=== PATIENT | male | born 1950 | race Caucasian/White ===

== ENCOUNTER 2021-05-14 12:25 | Outpatient (REF) | payer MEDICARE, MEDICAID, SELFPAY ==
--- NOTE | 2021-05-14 13:29 | MHC.AU.ANO ---
Adult Audiological Evaluation Date of Visit: 05/14/21 Reason for Appointment: Patient reports that other people in his life have started to express concern about his hearing. He feels he hears well one-on-one, but has difficulty in noisier settings. He also reports that his short-term memory has been greatly impacted by a stroke. Does patient feel they have a hearing loss?: Yes If Yes, Which Ear?: Both Ears Has hearing been tested previously?: No Hearing Handicap Inventory: HHIE SCORE: 16 Based on HHIE score, patient has: Mild to moderate perceived hearing handicap Ear History: Ear Deformity: None Reported Recent Ear Drainage: None Reported Recent Ear Pain: None Reported Recent Ear Infections: None Reported History of Ear Wax Buildup: Both Ears Previous Ear Surgery: None Reported Bothersome Tinnitus/Ringing/Noises in Ears: None Reported Ear used on the phone: Left Ear Blocked/Full Sensation in Ear(s): None Reported History of occupational noise exposure?: No History: No Medical History: Medical History: Patient reports history of stroke. He states that he has made significant progress in his recovery, but still struggles with short-term memory. He currently lives in a senior living setting. Otoscopy: Right Ear: Completely occluded with cerumen Left Ear: Completely occluded with cerumen Interpretation of Results: Due to the cerumen impactions, we were unable to perform the audiological evaluation today, as it would have impacted the results. Given patient's medical history, cerumen removal could not be performed in office today. It is recommended that a physician perform cerumen removal so that any potential complications can receive immediate medical attention. Recommendations: Follow-up with with PCP or an Ear, Nose, and Throat physician for cerumen removal. After complete cerumen removal, audiological evaluation can be rescheduled. Diagnosis: Primary Diagnosis: H61.23 Impacted Cerumen, Bilateral Signature: Provider: Ally Kwong, [facility]
== END 2021-05-14 12:26 | disposition home or self-care (01) ==
LOC: HO.SH 12:25
PROVIDERS: Visit Provider Internal Medicine
DX: Z13.89 Encounter for screening for other disorder (principal)

== ENCOUNTER 2021-08-27 12:22 | Outpatient (REF) | payer MEDICARE, MEDICAID, SELFPAY ==
--- NOTE | 2021-08-27 16:06 | MHC.AU.ANR ---
Adult Audiological Evaluation Date of Visit: 08/27/21 Reason for Appointment: Mr. Aragon was see today for an audiological evaluation. He was previously seen at our clinic on 05/14/2021, at which time he presented with impacted cerumen bilaterally that could not be removed. Since that time he has seen ENT for cerumen removal. Mr. Aragon notes that he feels he hears well most of the time, but his feels he doesn't hear well. Mr. Aragon suffered a stroke in 2019 and has been having difficulty with short term memory as a result. 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 He states that he has made significant progress in his recovery, but still struggles with short-term memory. He currently lives in a [facility] setting. Allergies: NKA Medication List: Aspirin, Isosorbide Mononitrate ER, Amlodipine besylate, methylphenidate, atorvastatin calcium, omeprazole, colace, hydrochlorothiazide, losartan potassium, acetaminophen Otoscopy: Right Ear: Unremarkable Left Ear: Unremarkable Tympanometry: Tympanometry performed due to: To assess integrity of the middle ear system Right Ear: Normal Middle Ear System (Type A) Left Ear: Normal Middle Ear System (Type A) Hearing Evaluation: Transducer(s) Used: Insert Earphones, Bone Conduction Method: Conventional Audiometry Stimuli Used: Pure Tones Right Ear: Description of Hearing: Normal hearing from 250-500 Hz, sloping to a mild to moderately-severe sensorineural hearing loss from 750-8000 Hz. Left Ear: Description of Hearing: Mild sloping to severe sensorineural hearing loss from 250-8000 Hz. Hearing in the left ear is 10-30 dBHL worse than the right ear from 500-2000 Hz. Speech Recognition Threshold (SRT): Method Used: Monitored Live Voice Stimuli Used: Spondee Words Right Ear: 30 dBHL Left Ear: 40 dBHL Word Discrimination: Method: Recorded Lists Word Lists Used: NU-6 Right Ear: 84% at 70 dBHL Left Ear: 56% at 80 dBHL, 36% at 85 dBHL Interpretation of Results: Testing today indicates an asymmetrical mild to moderately-severe/severe sensorineural hearing loss, with the left ear hearing worse than the right. Left ear speech discrimination scores are also significantly worse than the right ear, and suggest possible rollover as the score worsened when the volume was increased. Recommendations: Audiological re-evaluation in one year. Based on type and degree of hearing loss, trial with binaural amplification is recommended. Mr. Aragon notes that he doesn't feel ready to pursue hearing aids at this time. Referral to Ear, Nose, and Throat is recommended due to asymmetric sensorineural hearing loss. Diagnosis: Primary Diagnosis: H90.3 Bilateral Sensorineural Hearing Loss Services Performed: Services Performed: Comprehensive Audiological Evaluation (CPT 08163) Tympanometry (CPT 52008) Signature: Provider: Ally Llanos, CCC-A
--- NOTE | 2021-08-27 16:25 | MHC.AU.ANR ---
Adult Audiological Evaluation Date of Visit: 08/27/21 Reason for Appointment: Mr. Aragon was see today for an audiological evaluation. He was previously seen at our clinic on 05/14/2021, at which time he presented with impacted cerumen bilaterally that could not be removed. Since that time he has seen ENT for cerumen removal. Mr. Aragon notes that he feels he hears well most of the time, but his feels he doesn't hear well. Mr. Aragon suffered a stroke in 2019 and has been having difficulty with short term memory as a result. 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 He states that he has made significant progress in his recovery, but still struggles with short-term memory. He currently lives in a retirement setting. Allergies: NKA Medication List: Aspirin, Isosorbide Mononitrate ER, Amlodipine besylate, methylphenidate, atorvastatin calcium, omeprazole, colace, hydrochlorothiazide, losartan potassium, acetaminophen Otoscopy: Right Ear: Unremarkable Left Ear: Unremarkable Tympanometry: Tympanometry performed due to: To assess integrity of the middle ear system Right Ear: Normal Middle Ear System (Type A) Left Ear: Normal Middle Ear System (Type A) Hearing Evaluation: Transducer(s) Used: Insert Earphones, Bone Conduction Method: Conventional Audiometry Stimuli Used: Pure Tones Right Ear: Description of Hearing: Normal hearing from 250-500 Hz, sloping to a mild to moderately-severe sensorineural hearing loss from 750-8000 Hz. Left Ear: Description of Hearing: Mild sloping to severe sensorineural hearing loss from 250-8000 Hz. Hearing in the left ear is 10-30 dBHL worse than the right ear from 500-2000 Hz. Speech Recognition Threshold (SRT): Method Used: Monitored Live Voice Stimuli Used: Spondee Words Right Ear: 30 dBHL Left Ear: 40 dBHL Word Discrimination: Method: Recorded Lists Word Lists Used: NU-6 Right Ear: 84% at 70 dBHL Left Ear: 56% at 80 dBHL, 36% at 85 dBHL Interpretation of Results: Testing today indicates an asymmetrical mild to moderately-severe/severe sensorineural hearing loss, with the left ear hearing worse than the right. Left ear speech discrimination scores are also significantly worse than the right ear, and suggest possible rollover as the score worsened when the volume was increased. Recommendations: Audiological re-evaluation in one year. Trial with amplification is recommended. Referral to Ear, Nose, and Throat is recommended. Diagnosis: Primary Diagnosis: H90.3 Bilateral Sensorineural Hearing Loss Services Performed: Services Performed: Comprehensive Audiological Evaluation (CPT 84968) Tympanometry (CPT 40845) Signature: Provider: Ally Llanos, CCC-A
== END 2021-08-27 12:23 | disposition home or self-care (01) ==
LOC: HO.SH 12:22
PROVIDERS: Visit Provider Internal Medicine
DX: Z01.118 Encounter for examination of ears and hearing with other abnormal findings (principal); H90.3 Sensorineural hearing loss, bilateral
CPT/HCPCS: 92557; 92567

== ENCOUNTER 2022-02-01 12:29 | Outpatient (REF) | payer MEDICARE, MEDICAID, SELFPAY ==
--- NOTE | 2022-02-03 16:32 | MHC.AU.ANO ---
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 When last tested at this office on 08/27/2021, a significant asymmetric hearing loss was diagnosed and medical consultation with an Small Appliance Assembly Supervisor (ENT) was recommended; however, the referral for this appointment was never made. Since the last hearing test, Juan A has been diagnosed with Colon Cancer, had surgery performed in September 2021, and is now have Chemotherapy treatments. Has hearing been tested previously?: Yes Previous Hearing Test Results: 08/27/2021 [facility] Right Ear - Normal hearing thresholds at 250-500 Hz, sloping to a moderately-severe sensorineural hearing loss with 84% speech understanding at 70 dB HL Left Ear - Mild sloping to severe sensorineural hearing loss with 56% speech discrimination ability at 80 dB HL and 36% at 85 dB HL. 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 He stated he has made significant progress in his recovery, but still struggles with short-term memory. He currently lives in a longterm setting. Allergies: NKA Medication List: Remeron, FolEox Chemotherapy. Aspirin EC, Isosorbide Mononitrate ER, Amlodipine, Methylphenidate, Atorvastatin, Omeprazole, Colace, Losartan, Tylenol Otoscopy: Right Ear: Unremarkable Left Ear: Unremarkable Tympanometry: Tympanometry performed due to: To assess integrity of the middle ear system Right Ear: Normal Middle Ear System (Type A) Left Ear: Normal Middle Ear System (Type A) Otoacoustic Emissions Did Not Test Hearing Evaluation: Transducer(s) Used: Insert Earphones Bone Conduction Method: Conventional Audiometry Stimuli Used: Pure Tones Right Ear: Description of Hearing: Borderline normal/mild hearing loss, dropping to a severe sensorineural hearing loss 6861-5656 Hz. Left Ear: Description of Hearing: Mild dropping to severe sensorineural hearing loss 2258-6599 Hz. The left ear thresholds are 10-25 dB poorer than the right at 250-2000 Hz. Speech Recognition Threshold (SRT): Method Used: Monitored Live Voice Stimuli Used: Spondee Words Right Ear: 30 dB HL Left Ear: 45 dB HL Word Discrimination: Method: Recorded Lists Word Lists Used: NU-6 Right Ear: 92% at 70 dB HL Left Ear: 60% at 85 dB HL Binaural: 100% at 75 dB HL Comparison: Compared to the most recent evaluation: Thesholds have decreased in the right ear Recommendations: - Referral to Ear, Nose, and Throat is recommended. - Trial with binaural amplification is recommended. - Medical clearance from ENT is required before fitting. - When medical clearance for hearing aid(s) is received, Juan A is advised to schedule a Hearing Aid Evaluation appointment at this office. - Audiological re-evaluation in one year. Will send a reminder card Diagnosis: Primary Diagnosis: H90.3 Bilateral Sensorineural Hearing Loss Services Performed: Comprehensive Audiological Evaluation (CPT 11906) Tympanometry (CPT 77247) Signature: Provider: Ally Quezada, CCC-A
== END 2022-02-01 12:30 | disposition home or self-care (01) ==
LOC: HO.HAP 12:29
PROVIDERS: Visit Provider Internal Medicine
DX: Z46.1 Encounter for fitting and adjustment of hearing aid (principal); H90.3 Sensorineural hearing loss, bilateral
CPT/HCPCS: 92557; 92567

== ENCOUNTER 2022-06-20 16:05 | Outpatient (REF) | payer MEDICARE, MEDICAID, SELFPAY ==
--- NOTE | 2022-06-21 08:17 | MHC.AU.HAS ---
Hearing Aid Evaluation Date of Visit: 06/20/22 Historical Information: Description of Hearing: Asymmetric mild dropping to severe sensorineural hearing loss with the left ear being poorer than the right. Current personal amplification information, if applicable: NONE Summary: Patient was referred to ENT after last testing at this office on 02/01/2022 and medically cleared for binaural hearing aids. Patient does not want to use hearing aids. Discussed if he felt he would not wear aids, he should not proceed with fitting aids. Counseled extensively about his hearing loss, decreased speech understanding for the left ear, realistic expectations for amplification, and need to use aids every day, all day. Also discussed the difficulties he is experiencing from the effects of his stroke. He reports his family feels he needs the hearing aids and that he should try the hearing aids. Hearing Aid Prescription: Based on the individual?s shared listening needs, communication environments, dexterity, desire for connectivity, and personal preferences, the following prescription for amplification has been made: Right ear: Night Court Magistrate: PhonDigiMeld Audeo P 70-R Battery Size: Rechargeable Color: Silver Foster Traffic Control Officer: #2 M Type of Dome: Open Dome Left ear:Left ear prescription to be same as Right Hearing Aid above: Night Court Magistrate: Phonak Audeo P 70-R Battery Size: Rechargeable Color: SIlver Foster Traffic Control Officer: #2 M Type of Dome: Vented Dome Plan of Care: Patient wishes to purchase hearing aids as prescribed Hearing Instrument Fitting to be scheduled when materials arrive Primary Diagnosis: H90.3 Bilateral Sensorineural Hearing Loss Signature:Provider: Vargas Quezada, [facility]
== END 2022-06-20 16:06 | disposition home or self-care (01) ==
LOC: HO.HAP 16:05
PROVIDERS: Visit Provider Otolaryngology
DX: Z46.1 Encounter for fitting and adjustment of hearing aid (principal); H90.3 Sensorineural hearing loss, bilateral
CPT/HCPCS: 92591

== ENCOUNTER 2023-10-26 13:44 | Outpatient (REF) | payer MEDICARE, MEDICAID, SELFPAY ==
--- NOTE | 2023-10-26 15:20 | MHC.AU.HA1 ---
Hearing Aid Evaluation Date of Visit: 10/26/23 Historical Information: Description of Hearing: Mild gradually sloping to severe sensorineural hearing loss, bilateral. Asymmetry noted worse left. Summary: Accompanied by Shola GONZALES. Juan A reports that he is ready to try hearing aids at this time. He resisted in the past as he was worried about the size of hearing aids due to remembering his great aunt's large hearing aid 50 years ago. He reports that his is encouraging him to get hearing aids and that he would like to hear his grandchildren better. We looked at a modern ERENDIRA style hearing aid and Juan A is amenable to this style. Counseled on adjustment to amplification and importance of consistent wear. They selected a rechargeable hearing aid. They report that Juan A does not use his Android phone for much besides texting at this time. Will order Phonak HAs incase he wants to connect with his phone at some point in the future. Hearing Aid Prescription: Based on the individual?s shared listening needs, communication environments, dexterity, desire for connectivity, and personal preferences, the following prescription for amplification has been made: Right ear: Make, Model, Color: Phonak Audeo L 70-R Silver Foster Battery Size: Rechargeable Lighter Captain/Slim Tube: #2 M Type of Earmold/Dome/CShell/SlimTip: sm vented Left ear: Left ear prescription to be same as Right Hearing Aid above: Make, Model, Color: Phonak Audeo L 70-R Silver Foster Battery Size: Rechargeable Lighter Captain/Slim Tube: #2 M Type of Earmold/Dome/CShell/SlimTip: sm vented Plan of Care: Patient wishes to purchase hearing aids as prescribed Action Taken/Action Needed: Medical Clearance to be requested from PCP/ENT Hearing Instrument Fitting to be scheduled when materials arrive Primary Diagnosis: H90.3 Bilateral Sensorineural Hearing Loss Signature: Provider: Vargas Norton, [facility]
== END 2023-10-26 13:45 | disposition home or self-care (01) ==
LOC: HO.SH 13:44
PROVIDERS: PCP Internal Medicine; Visit Provider Internal Medicine
DX: H90.3 Sensorineural hearing loss, bilateral (principal)
CPT/HCPCS: 92552; 92556; 92591

== ENCOUNTER 2024-01-10 14:21 | Outpatient (REF) | payer MEDICARE, MEDICAID, SELFPAY ==
--- NOTE | 2024-01-10 16:01 | MHC.AU.HA2 ---
Hearing Instrument Fitting- Adult- Binaural Date of Visit: 01/10/24 Hearing Instruments Dispensed: Right Ear: Make, Model, Color, Serial Number: Phonak Razeo L 70-R Bebeto Foster [id number] [employer] Maker Repair Warranty: 01/24/2027 [employer] Maker Loss and Damage Warranty: 01/24/2027 [employer] Service Plan: 01/09/2025 Battery Size: Rechargeable Spent Grain Dryer/Slim Tube: #2 M Earmold/Dome/CShell/SlimTip: sm vented Type of Wax Guard: Cerustop Left Ear: Make, Model, Color, Serial Number: Phonak Audeo L 70-R Bebeto Foster [id number] [employer] Maker Repair Warranty: 01/23/2027 [employer] Maker Loss and Damage Warranty: 01/23/2027 [employer] Service Plan: 01/09/2025 Battery Size: Rechargeable Spent Grain Dryer/Slim Tube: #2 M Earmold/Dome/CShell/SlimTip: sm vented Type of Wax Guard: Cerustop Accessories/Assistive Technology: Phonak Rabbit Breeder Ease S#[id number] Summary of Fitting: Here for fitting. Accompanied by his and his INORGANIC CHEMIST. Fit with and oriented to binaural Phonak Audeo L70 R HAs. Verified to DSL 5 Adult targets. Ran feedback management. Set to 85% gain with automatic gradual increase. Counseled on adjustment to amplification. VC disabled. Good subjective comfort and benefit reported. Practiced insertion and removal. Demonstrated morphology teacher use. Reviewed maintenance and precautions. Not paired with a phone at this time. Recommendations: Recommendations: Hearing instrument care and maintenance were discussed and practiced. A hearing instrument follow-up was scheduled. Diagnosis Code(s): Primary Diagnosis: H90.3 Bilateral Sensorineural Hearing Loss Signature: Provider: Vargas Norton, [facility]
== END 2024-01-10 14:22 | disposition home or self-care (01) ==
LOC: HO.HAP 14:21
PROVIDERS: PCP Internal Medicine; Visit Provider Otolaryngology
DX: Z46.1 Encounter for fitting and adjustment of hearing aid (principal); H90.3 Sensorineural hearing loss, bilateral
CPT/HCPCS: V5011; V5020; V5160; V5261

== ENCOUNTER 2024-03-12 10:07 | Outpatient (REF) | payer MEDICARE, MEDICAID, SELFPAY | END 2024-03-12 10:08 | disposition home or self-care (01) | LOC: HO.HAP 10:07 | PROVIDERS: Visit Provider Internal Medicine | DX: Z13.89 Encounter for screening for other disorder (principal) ==

== ENCOUNTER 2024-11-22 12:13 | Outpatient (REF) | payer MEDICARE, MEDICAID, SELFPAY ==
--- OUTSIDE RECORDS SUMMARY | 2024-11-22 13:00 | XMS_ITS | Clinical Summary ---
Author Organization [facility] [address] [place] [address] [place] [phone] Phone Care Team Providers Care Supervisor Packing Room Name Role Phone Heather Tan MD Primary Care Provider [phone] Allergies No known active allergies Medications docusate sodium (COLACE) 100 mg capsule Take 1 capsule (100 mg total) by mouth. 09/18/19 21 Active methylphenidate (RITALIN LA) 20 mg 24 hr capsule One tab by mouth every morning 10/07/19 22 Active sertraline (ZOLOFT) 25 mg tablet Take 1 tablet (25 mg total) by mouth 1 (one) time each day. 06/04/20 21 Active cholecalciferol (VITAMIN D-3) 25 mcg (1,000 unit) tablet Take 1 tablet (25 mcg total) by mouth daily. Active tamsulosin (FLOMAX) 0.4 mg 24 hr capsule Take 1 capsule (0.4 mg total) by mouth 1 (one) time each day. 05/10/20 24 Active aspirin 81 mg EC tablet Take 1 tablet (81 mg total) by mouth 1 (one) time each day. 90 tablet 1 07/30/20 24 Active losartan (COZAAR) 50 mg tablet Take 1 tablet (50 mg total) by mouth 1 (one) time each day. 90 tablet 1 07/30/20 24 Active atorvastatin (LIPITOR) 80 mg tablet Take 1 tablet (80 mg total) by mouth at bedtime. 90 tablet 09/11/19 25 Active amLODIPine (NORVASC) 10 mg tablet Take 1 tablet (10 mg total) by mouth at bedtime. 90 tablet 09/11/19 25 Active isosorbide mononitrate (IMDUR) 30 mg 24 hr tablet Take 1 tablet (30 mg total) by mouth 1 (one) time each day in the morning. 90 tablet 09/11/19 25 Active pantoprazole (PROTONIX) 40 mg EC tablet TAKE 1 TABLET BY MOUTH EVERY DAY IN THE MORNING 30 MIN PRIOR TO EATING OR DRINKING 30 tablet 11 10/15/19 25 Active mirtazapine (REMERON) 7.5 mg tablet 08/01/19 25 025 Discontinued Active Problems Problem Noted Date Diagnosed Date Memory impairment 07/07/2024 Malignant neoplasm of ascend ing colon ([facility] V24, [facility] V28) 12/08/2021 Secondary malignancy of inte stinal lymph nodes ([facility] V24, [facility] V28) 10/19/2021 Overview (07/07/2024): Metastatic colon cancr Hx SBO 10/10/2021 Stage 3b chronic kidney disease ([facility] V24, S/[facility] V28) 10/07/2021 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 GERD (gastroesophageal reflux disease) 0 Thalamic stroke ([facility] V24, [facility] V28) 07/01 Overview (07/07/2024): 12/2018: 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 causing excessive sleepiness, impulsivity, poor memory recall Insomnia 10/04/2013 Hypertension 08/22/2006 Erectile dysfunction 08/14/2006 Other psoriasis 07/20/2005 Hypercholesterolemia 07/20/2005 Anxiety state 07/20/2005 Overview (07/07/2024): chronic Depression 07/20/2005 Encounters Date Type Department Care Team Description 10/31/2024 11:00 AM EDT Office Visit [facility] Hematology Oncology [address] [place] [phone] Ramya Mejia MD Malignant neoplasm of ascending colon ([facility] V24, [facility] V28) (Primary Dx) 10/22/2024 1:45 PM EDT Office Visit [facility] [place] [address] [place] [address] [place] [phone] Vlad Andrade, DPM Lumbosacral radiculopathy (Primary Dx); Hammertoes of both feet; Pain in toes of both feet; Dermatophytosis, nail 09/20/2024 Telephone Adult Medicine [address] [phone] Heather Tan MD Referral from Last 3 Months Immunizations Name Administration Dates Next Due COVID-19 (Pfizer/Comirnaty) 12yo and older 04/28 Influenza Quadravalent, 0.5m l (Fluad) 65yo and older 04/28/2023 Influenza Quadravalent, 0.5m l (Fluzone High-dose) 65yo and older 05/14/2022,04/03/2021 Influenza trivalent, 0.5mL ( Fluzone High-dose) 65yo and older 04/13/2024,05/23/2020 Influenza trivalent, with pr eservative (Fluzone; Afluria) 6mo and older 08/06/2014 MMR, measles mumps and rubel la Live (Priorix; M-M-R II) 12mo and older 09/20/2000 Moderna (age 6mo & older) Bi valent, COVID-19, 0.5 mL or 0.25 mL dosage 05/14/2022 Moderna Covid-19 Bivalent, O riginal + Ba.1 (Non-US Tradename Spikevax Bivalent) 05/14/2022 PPD Test 09/04/2002 Pfizer (ages 12 & older) Bivalent, COVID-19 04/01 Pfizer SARS-CoV-2 COVID-19, mRNA, LNP-S, preservative free 06/19/2021,09/07/2020,08/17/2020 Pneumococcal conjugate 13 va lent (Prevnar 13, PCV13) 2mo and older 08/13/2018 Pneumococcal polysaccharide 23 valent (Pneumovax 23) 2yo and older 03/30/2020 RSV, bivalent, protein subun it RSVpreF, 0.5mL, Preservative Free (Arexvy) 60yo and older 10/13/2024 Td Tetanus diptheria (Tdvax) 7yo and older 08/13,07/31/1998 Tdap Tetanus diptheria acell ular pertussis (Boostrix; Adacel) 7yo and older 09/19/2008 Zoster Live 10/12/2012 Zoster recombinant (Shingrix ) 19yo and older 10/13/2024 Surgical History Surgery Date Site/Laterality Comments OTHER SURGICAL HISTORY PROCEDURE: MO STRABISMUS RECESSION/RESCJ 1 [facility]; COMMENT: strabismus surgery TONSILLECTOMY PROCEDURE: HISTORICAL TONSILLECTOMY APPENDECTOMY PROCEDURE: MO APPENDECTOMY COLONOSCOPY 09/21/2007 PROCEDURE: MO COLONOSCOPY FLX DX W/COLLJ SPEC WHEN PFRMD; COMMENT: Negative. COLONOSCOPY 12/09/2020 PROCEDURE: HISTORICAL COLONOSCOPY; COMMENT: Procedure aborted due to poor bowel prep. COLONOSCOPY 08/2022 PROCEDURE: HISTORICAL COLONOSCOPY; COMMENT: repeat 2 years Medical History Medical History Date Comments Other psoriasis DX:Other psorias is Depressive disorder, not els ewhere classified DX:Depressive disorder, not elsewhere classified Anxiety state, unspecified DX:An xiety state, unspecified Mixed hyperlipidemia DX:Mixed hy perlipidemia Essential hypertension, benign 08/22/2006 D X:Essential hypertension, benign Special screening for malign ant neoplasms, colon 09/21/2007 DX:Special screening for mal ignant neoplasms, colon; COMMENT: Negative colonoscopy 09/21/2007, no colon cancer screening needed for 10 years. Tremor 11/07/2007 DX:Tremor Clavicle fracture 04/07/2011 DX:Clavicle fr acture Insomnia 10/04/2013 DX:Insomnia Thalamic stroke ([facility] V24 , [facility] V28) 07/01/2019 DX:Thalamic stroke ([facility]); CO MMENT: 01/16 Constipation 02/20/2020 DX:Constipation GERD (gastroesophageal reflu x disease) 02/20/2020 DX:GERD (gastroesophageal re flux disease) CKD (chronic kidney disease) stage 3, GFR 30-59 ml/min ([facility]/HCC V24, [facility] V28) 03/30/2020 DX:CKD (chronic kidney disea se) stage 3, GFR 30-59 ml/min ([facility]) 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 DX:Organi c brain syndrome Colon cancer (CMS/HCC V24, C MS/HCC V28) 10/19/2021 DX:Colon cancer (HCC); COMME NT: 10/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, small and large bowel obstruction; adenoca; subtotal colectomy with anastomosis 9 positive nodes, mod well differentiated Secondary malignancy of inte stinal lymph nodes (CMS/HCC V24, CMS/HCC V28) 10/19/2021 DX:Secondary malignancy of i ntestinal lymph nodes (HCC); COMMENT: Metastatic colon cancr Colon cancer (CMS/HCC V24, C MS/HCC V28) DX:Colon cancer (HCC) Functional dyspepsia DX:Function al dyspepsia Family History Medical History Relation Name Comments Emphysema Father , alcohol a buse Hypertension Mother breast cancer Other: aspbergers Son Colon cancer Neg Hx Relation Name Status Comments Father Mother Son Social History Tobacco Use Types Packs/Day Years Used Date Smoking Tobacco: Never Smokeless Tobacco: Never Tobacco Cessation:Counseling Given: Not Answered Alcohol Use Standard Drinks/Week Comments No 0 (1 standard drink = 0.6 oz pur e alcohol) Sex and Gender Information Value Date Recorded Sex Assigned at Not on file Legal Sex Male 7:30 PM EST Gender Identity Not on file Sexual Orientation Not on file Obstetrics History Last Filed Vital Signs Vital Sign Reading Time Taken Comments Blood Pressure 161/80 10/31/2024 10:59 AM EDT Pulse 70 10/31/2024 10:59 AM EDT Temperature 36.6 ??C (97.9 ??F) 10/31/2024 10:59 AM E DT Respiratory Rate 16 07/02/2024 9:04 AM EST Oxygen Saturation 100% 10/31/2024 10:59 AM EDT Inhaled Oxygen Concentration - - Weight 81.6 kg (180 lb) 10/31/2024 10:59 AM EDT Height 175.3 cm (5' 9 ) 10/31/2024 10:59 AM EDT Body Mass Index 26.58 10/31/2024 10:59 AM EDT Plan of Treatment Upcoming Encounters Date Type Department Care Team (Late st Contact Info) Description 12/31/2024 11:00 AM EDT Office Visit Adult Medicine [address] [place] [phone] Heather Tan MD [address] [place] [address] 07/09/2025 11:15 AM EST Office Visit [facility] Hematology Oncology [address] [place] [phone] Ramya Mejia MD [address] [place] [address] Health Maintenance Due Date Last Done Comments Social Influencers of Health Screening 07/08/2022 Colorectal Cancer Screening: Colonoscopy 09/12/2024 09/12/2022 COVID-19 Vaccine (8 - Pfizer risk 2023- season) 2024 04/13/2024, 04/28/2023, 04/28/2023, Additional history exists Zoster Vaccines (2 of 2) 12/08/2024 10/13/2024, 09/28 Depression Screening 07/02/2025 07/02/2024 Falls Risk Assessment 07/02/2025 07/02/2024 Hypertension/CHF/CAD Annual BMP Blood Test 07/02/2025 07/02/2024, 08/31/2022 Medicare Annual Wellness Visit 07/02/2025 07/02/2024 DTaP,Tdap,and Td Vaccines (4 - Td or Tdap) 08/13/2028 08/13/2018, 09/19/2008, 07/31/1998 Cholesterol Screening (Lipid Panel) 07/02/2029 07/02/2024 MMR Vaccines Aged Out 09/20/2000 No longer eligi ble based on patient's age to complete this topic Hepatitis C Screening Addressed 10/20/2012 Overri dden with the intention of not completing the topic Pneumococcal Vaccine: 50+ Years Completed 03/30/2020, 08/13/2018 Influenza Vaccine Completed 04/13/2024, , 05/14/2022, Additional history exists RSV Immunization Adult Patients Completed 10/13/2024 HIB Vaccines Aged Out No longer eligi ble based on patient's age to complete this topic HPV Vaccines Aged Out No longer eligi ble based on patient's age to complete this topic Hepatitis A Vaccines Aged Out No long er eligible based on patient's age to complete this topic Hepatitis B Vaccines Aged Out No long er eligible based on patient's age to complete this topic IPV Vaccines Aged Out No longer eligi ble based on patient's age to complete this topic Meningococcal ACWY Vaccine Aged Out N o longer eligible based on patient's age to complete this topic Meningococcal B Vaccine Aged Out No l onger eligible based on patient's age to complete this topic RSV Immunization Patients Under 20 months Aged Out No longer eligible based on patient's age to complete this topic Varicella Vaccines Aged Out No longer eligible based on patient's age to complete this topic Procedures Procedure Name Priority Date/Time Associated Diagnosis Comments COMPREHENSIVE METABOLIC PANEL Routine 07/02/2024 10:29 AM EST Annual physical exam Malignant neoplasm of ascending colon (CMS/HCC V24, CMS/HCC V28) LIPID PANEL WITH REFLEX TO DIRECT LDL Routine 07/02/2024 10:29 AM EST Lipid screening from Last 3 Months or Most Recently Relevant to Health Maintenance Results * (ABNORMAL) Lipid panel with reflex to direct LDL (07/02/2024 10:29 AM EST) Cholesterol 93 0 - 200 mg/dL LAB CHEMISTRY METHOD 07/02/2024 2:36 PM [facility] Triglycerides 198(H) 0 - 150 mg/dL LAB CHEMISTRY METHOD 07/02/2024 2:36 PM [facility] HDL 32(L) >=40 mg/dL LAB CHEMISTRY METHOD 07/02/2024 2:36 PM [facility] LDL Calculated 21 0 - 100 mg/dL LAB CHEMISTRY METHOD 07/02/2024 2:36 PM [facility] VLDL Cholesterol Jude 39.6 mg/dL LAB CHEMISTRY METHOD 07/02/2024 2:36 PM [facility] Non HDL Chol. (LDL+VLDL) 61 <145 mg/dL LAB CHEMISTRY METHOD 07/02/2024 2:36 PM [facility] Chol/HDL Ratio 2.9 0.0 - 4.4 LAB CHEMISTRY METHOD 07/02/2024 2:36 PM [facility] Blood Venous blood specimen / Unknown Venipuncture / Unknown 07/02/2024 10:29 AM EST 07/02/2024 10:29 AM EST Priscilla BEVERLY LAB BLOOD ORDERABLES Final Re sult [facility] [address] [place] [address], [place] [phone] * (ABNORMAL) Comprehensive metabolic panel (07/02/2024 10:29 AM EST) Sodium 141 133 - 145 mmol/L LAB CHEMISTRY METHOD 07/02/2024 2:36 PM [facility] Potassium 4.0 3.5 - 5.5 mmol/L LAB CHEMISTRY METHOD 07/02/2024 2:36 PM [facility] Chloride 107 96 - 110 mmol/L LAB CHEMISTRY METHOD 07/02/2024 2:36 PM [facility] CO2 29 21 - 32 mmol/L LAB CHEMISTRY METHOD 07/02/2024 2:36 PM [facility] Anion Gap 5 3 - 11 LAB CHEMISTRY METHOD 07/02/2024 2:36 PM [facility] Glucose 114(H) 70 - 100 mg/dL LAB CHEMISTRY METHOD 07/02/2024 2:36 PM [facility] BUN 21 5 - 25 mg/dL LAB CHEMISTRY METHOD 07/02/2024 2:36 PM [facility] Creatinine 1.76(H) 0.70 - 1.30 mg/dL LAB CHEMISTRY METHOD 07/02/2024 2:36 PM [facility] eGFR 41(L) >=60 mL/min/1. 73m2 LAB CHEMISTRY METHOD 07/02/2024 2:36 PM [facility] Comment:Calculation based on the??Chronic Kidney Disease Epidemiology Collaboration (CKD-EPI) equation refit??without adjustment for race. BUN/Creatinine Ratio 11.9 LAB CHEMISTRY METHOD 07/02/2024 2:36 PM [facility] Calcium 9.5 8.5 - 10.5 mg/dL LAB CHEMISTRY METHOD 07/02/2024 2:36 PM [facility] AST (SGOT) 19 10 - 42 unit/L LAB CHEMISTRY METHOD 07/02/2024 2:36 PM [facility] ALT (SGPT) 21 10 - 60 unit/L LAB CHEMISTRY METHOD 07/02/2024 2:36 PM [facility] Alkaline Phosphatase 104 42 - 121 unit/L LAB CHEMISTRY METHOD 07/02/2024 2:36 PM [facility] Total Protein 7.8 6.0 - 8.0 g/dL LAB CHEMISTRY METHOD 07/02/2024 2:36 PM [facility] Albumin 4.4 3.2 - 5.0 g/dL LAB CHEMISTRY METHOD 07/02/2024 2:36 PM [facility] Total Bilirubin 0.5 0.0 - 1.4 mg/dL LAB CHEMISTRY METHOD 07/02/2024 2:36 PM [facility] Blood Venous blood specimen / Unknown Venipuncture / Unknown 07/02/2024 10:29 AM EST 07/02/2024 10:29 AM EST us Priscilla BEVERLY LAB BLOOD ORDERABLES Final Re sult [facility] [address] [place] [address], from Last 3 Months or Most Recently Relevant to Health Maintenance Insurance MEDICARE MEDICAID - [place] Advance Directives Documents on File Type Date Recorded Patient Intelligence Research Specialist Expl anation Health Care Decision (hx) 09/13/2022 AD CARRERA DIRECTIVE Health Care Decision (hx) 09/13/2022 AD CARRERA DIRECTIVE Health Care Decision (hx) 09/13/2022 AD CARRERA DIRECTIVE Health Care Decision (hx) 09/13/2022 AD CARRERA DIRECTIVE Health Care Decision (hx) 09/13/2022 AD CARRERA DIRECTIVE Health Care Decision (hx) 09/13/2022 AD CARRERA DIRECTIVE Health Care Decision (hx) 09/13/2022 AD CARRERA DIRECTIVE Health Care Decision (hx) 09/13/2022 AD CARRERA DIRECTIVE Health Care Decision (hx) 09/13/2022 AD CARRERA DIRECTIVE Health Care Decision (hx) 09/13/2022 AD CARRERA DIRECTIVE Health Care Decision (hx) 09/13/2022 AD CARRERA DIRECTIVE Health Care Decision (hx) 09/13/2022 AD CARRERA DIRECTIVE Health Care Decision (hx) 04/11/2019 AD CARRERA DIRECTIVE Health Care Decision (hx) 04/11/2019 AD CARRERA DIRECTIVE Health Care Decision (hx) 04/11/2019 AD CARRERA DIRECTIVE Health Care Decision (hx) 04/11/2019 AD CARRERA DIRECTIVE Health Care Decision (hx) 04/11/2019 AD CARRERA DIRECTIVE Health Care Decision (hx) 04/11/2019 AD CARRERA DIRECTIVE Health Care Decision (hx) 04/11/2019 AD CARRERA DIRECTIVE Health Care Decision (hx) 04/11/2019 AD CARRERA DIRECTIVE Health Care Decision (hx) 04/11/2019 AD CARRERA DIRECTIVE Health Care Decision (hx) 04/11/2019 AD CARRERA DIRECTIVE Health Care Decision (hx) 04/11/2019 AD CARRERA DIRECTIVE Health Care Decision (hx) 04/11/2019 AD CARRERA DIRECTIVE Health Care Decision (hx) 04/11/2019 AD CARRERA DIRECTIVE Health Care Decision (hx) 04/11/2019 AD CARRERA DIRECTIVE Health Care Decision (hx) 04/11/2019 AD CARRERA DIRECTIVE Health Care Decision (hx) 04/11/2019 AD CARRERA DIRECTIVE Health Care Decision (hx) 04/11/2019 AD CARRERA DIRECTIVE Health Care Decision (hx) 04/11/2019 AD CARRERA DIRECTIVE Health Care Decision (hx) 04/11/2019 AD CARRERA DIRECTIVE Health Care Decision (hx) 04/11/2019 AD CARRERA DIRECTIVE Health Care Decision (hx) 04/11/2019 AD CARRERA DIRECTIVE Health Care Decision (hx) 04/11/2019 AD CARRERA DIRECTIVE Health Care Decision (hx) 04/11/2019 AD CARRERA DIRECTIVE Health Care Decision (hx) 04/11/2019 AD CARRERA DIRECTIVE Health Care Decision (hx) 04/11/2019 AD CARRERA DIRECTIVE Health Care Decision (hx) 04/11/2019 AD CARRERA DIRECTIVE Health Care Decision (hx) 04/11/2019 AD CARRERA DIRECTIVE Health Care Decision (hx) 04/11/2019 AD CARRERA DIRECTIVE Health Care Decision (hx) 04/11/2019 AD CARRERA DIRECTIVE Health Care Decision (hx) 04/11/2019 AD CARRERA DIRECTIVE Health Care Decision (hx) 04/11/2019 AD CARRERA DIRECTIVE Health Care Decision (hx) 04/11/2019 AD CARRERA DIRECTIVE Health Care Decision (hx) 04/11/2019 AD CARRERA DIRECTIVE Health Care Decision (hx) 04/11/2019 AD CARRERA DIRECTIVE Health Care Decision (hx) 04/11/2019 AD CARRERA DIRECTIVE Health Care Decision (hx) 04/10/2019 AD CARRERA DIRECTIVE Health Care Decision (hx) 04/10/2019 AD CARRERA DIRECTIVE Health Care Decision (hx) 04/10/2019 AD CARRERA DIRECTIVE Health Care Decision (hx) 04/10/2019 AD CARRERA DIRECTIVE Health Care Decision (hx) 04/10/2019 AD CARRERA DIRECTIVE Health Care Decision (hx) 04/10/2019 AD CARRERA DIRECTIVE Health Care Decision (hx) 04/10/2019 AD CARRERA DIRECTIVE Health Care Decision (hx) 04/10/2019 AD CARRERA DIRECTIVE Health Care Decision (hx) 04/10/2019 AD CARRERA DIRECTIVE Health Care Decision (hx) 04/10/2019 AD CARRERA DIRECTIVE Health Care Decision (hx) 04/10/2019 AD CARRERA DIRECTIVE Health Care Decision (hx) 04/10/2019 AD CARRERA DIRECTIVE Health Care Decision (hx) 04/10/2019 AD CARRERA DIRECTIVE Health Care Decision (hx) 04/10/2019 AD CARRERA DIRECTIVE Health Care Decision (hx) 04/10/2019 AD CARRERA DIRECTIVE Health Care Decision (hx) 04/10/2019 AD CARRERA DIRECTIVE Health Care Decision (hx) 04/10/2019 AD CARRERA DIRECTIVE Health Care Decision (hx) 04/10/2019 AD CARRERA DIRECTIVE Health Care Decision (hx) 04/10/2019 AD CARRERA DIRECTIVE Health Care Decision (hx) 04/10/2019 AD CARRERA DIRECTIVE Health Care Decision (hx) 04/10/2019 AD CARRERA DIRECTIVE Health Care Decision (hx) 04/10/2019 AD CARRERA DIRECTIVE Health Care Decision (hx) 04/10/2019 AD CARRERA DIRECTIVE Health Care Decision (hx) 04/10/2019 AD CARRERA DIRECTIVE Health Care Decision (hx) 04/10/2019 AD CARRERA DIRECTIVE Health Care Decision (hx) 04/10/2019 AD CARRERA DIRECTIVE Health Care Decision (hx) 04/10/2019 AD CARRERA DIRECTIVE Health Care Decision (hx) 04/10/2019 AD CARRERA DIRECTIVE Health Care Decision (hx) 04/10/2019 AD CARRERA DIRECTIVE Health Care Decision (hx) 04/10/2019 AD CARRERA DIRECTIVE Health Care Decision (hx) 04/10/2019 AD CARRERA DIRECTIVE Health Care Decision (hx) 04/10/2019 AD CARRERA DIRECTIVE Health Care Decision (hx) 04/10/2019 AD CARRERA DIRECTIVE Health Care Decision (hx) 04/10/2019 AD CARRERA DIRECTIVE Health Care Decision (hx) 04/10/2019 AD CARRERA DIRECTIVE Care Teams Supervisor Packing Room Relationship Specialty Start Date End Date Heather Tan MD [address] [id number] PCP - General 10/08/99
--- OUTSIDE RECORDS SUMMARY | 2024-11-22 13:00 | XMS_ITS | Encounter Summary ---
Author Organization [facility] Address [address] [facility] [address] [place] [address] Phone Care Team Providers Care Legal Executive Name Role Phone Heather Tan MD Primary Care Provider [phone] Reason for Visit * Reason Onset Date Comments Med Refill 11/06/2024 Encounter Details Date Type Department Care Team (Late st Contact Info) Description 11/06/2024 Refill [facility] [address] [facility] [address] [place] [phone] Catarina Milner [address] [facility] [address] [place] [phone] Social History Tobacco Use Types Packs/Day Years Used Date Smoking Tobacco: Never Smokeless Tobacco: Never Alcohol Use Standard Drinks/Week Comments Yes 0 (1 standard drink = 0.6 oz pur e alcohol) Sex and Gender Information Value Date Recorded Sex Assigned at Not on file Legal Sex Male 3:47 PM EDT Gender Identity Not on file Sexual Orientation Not on file documented as of this encounter Plan of Treatment Upcoming Encounters Date Type Department Care Team (Late Contact Info) Description 01/17/2025 11:45 AM EDT Office Visit [facility] [address] [facility] [address] [place] [phone] Delmer Linares MD [address] [facility] [address] [place] [address] documented as of this encounter Visit Diagnoses Not on filedocumented in this encounter Care Teams Legal Executive Relationship Specialty Start Date End Date Heather Tan MD PCP - General Internal Medicine 12/27/22 documented as of this encounter
--- OUTSIDE RECORDS SUMMARY | 2024-11-22 13:00 | XMS_ITS ---
Author Organization [facility] Address [address] [place] [address] Care Team Providers Care Public Employment Mediator Name Role Phone Heather Tan MD Primary Care Provider [phone] Active Problems Problem Noted Date Diagnosed Date Malignant neoplasm of ascending colon 12/08/2021 Current Oncology Plans No current plan information found. Past Plans ONCOLOGY TREATMENT Plan Name Start Date Discontinue Date Treatment Medications Discontinue Reason Plan Provider Cycles [place] BCN OP FOLFOX 6 (MODIFIED) - OXALIPLATIN + LEUCOVORIN + FLUOROURACIL (5 HRS) 12/09/19 22 08/25/2022 albuterol (PROVENTIL)dexamethaso ne (DECADRON)dextrose 5 %diphenhydrAMINE (BENADRYL)EPINEPHrinef amotidine (PEPCID)fluorouracil (5 FU) 46 Hr Chemo infusion- Home Usefluorouracil (ADRUCIL)hydrocortison e (SOLU-CORTEF) IVleucovorin (WELLCOVORIN) infusionmeperidine (DEMEROL) 25 MG/MLoxaliplatin (ELOXATIN) chemo infusionpalonosetron (ALOXI)prochlorperazin e (COMPAZINE)Saline Flush 0.9 %sodium chloride (NS) 0.9 %sodium chloride 0.9% bolus (NS) Therapy Complete Ramya Mejia MD 12 of 12 cycles started Radiation Treatments * No radiation treatments are documented for this patient in [facility]. Treatments may have been administered in another system.
--- OUTSIDE RECORDS SUMMARY | 2024-11-22 13:00 | XMS_ITS | Encounter Summary ---
Author Organization [facility] Address [address] [place], [place] [id number] Care Team Providers Care Strapper Operator Name Role Phone Heather Tan MD Primary Care Provider [phone] Encounter Details Date Type Department Care Team Description 03/08/2022 Social Work [facility] Oncology Services [address] [place] [address] Shivam Odell, [facility] Social History Tobacco Use Types Packs/Day Years Used Date Smoking Tobacco: Never Smokeless Tobacco: Never Alcohol Use Standard Drinks/Week Comments Never 0 (1 standard drink = 0.6 oz pur e alcohol) Sex and Gender Information Value Date Recorded Sex Assigned at Male 12/28/2021 3:23 PM EDT Gender Identity Not on file Sexual Orientation Not on file Job Start Date Occupation Industry Not on file Not on file Not on file COVID-19 Exposure Response Date Recorded In the last 10 days, have yo u been in contact with someone who was confirmed or suspected to have Coronavirus/COVID-19? No / Unsure 03/10/2022 11:24 AM EDT documented as of this encounter Plan of Treatment Not on file documented as of this encounter Visit Diagnoses Not on filedocumented in this encounter Care Teams Strapper Operator Relationship Specialty Start Date End Date Heather Tan MD PCP - General Internal Medicine 02/12/20 documented as of this encounter
--- OUTSIDE RECORDS SUMMARY | 2024-11-22 13:00 | XMS_ITS | Encounter Summary ---
Author Organization [facility] Address [address] [facility] [address] [place] [address] Phone Care Team Providers Care Setup Operator Name Role Phone Heather Tan MD Primary Care Provider [phone] Reason for Visit * Reason Onset Date Comments Med Refill 11/06/2024 Encounter Details Date Type Department Care Team (Late st Contact Info) Description 11/06/2024 Refill [facility] [address] [facility] [address] [place] [phone] Catarina Milner [address] [facility] [address] [place] [phone] Social History Tobacco Use Types Packs/Day Years [...] on file documented as of this encounter Miscellaneous Notes * Telephone Encounter - Catarina Milner - 11/06/2024 11:20 AM EDT ERROR documented in this encounter Plan of Treatment Upcoming Encounters Date Type Department Care Team (Late st Contact Info) Description 01/17/2025 11:45 AM EDT Office Visit [facility] [address] [address] Delmer Linares MD [address] [address] documented as of this encounter Visit Diagnoses Not on filedocumented in this encounter Care Teams Setup Operator Relationship Specialty Start Date End Date Heather Tan MD PCP - General Internal Medicine 12/27/22 documented as of this encounter
--- OUTSIDE RECORDS SUMMARY | 2024-11-22 13:00 | XMS_ITS | Clinical Summary ---
Author Organization [facility] Address [address] [place] [address] Phone Care Team Providers Care Brownell Operator Name Role Phone Heather Tan MD Primary Care Provider [phone] Allergies No known active allergies Medications acetaminophen (TYLENOL) 325 MG tablet Take 650 mg by mouth every 6 (six) hours if needed for mild pain Active amLODIPine (NORVASC) 10 MG tablet Take 10 mg by mouth 1 (one) time each day Active aspirin (ST PAVAN) 81 MG EC tablet Take 81 mg by mouth 1 (one) time each day Active atorvastatin (LIPITOR) 80 MG tablet Take 80 mg by mouth 1 (one) time each day Active Cholecalciferol (Vitamin D) 25 MCG (1000 UT) tablet Take by mouth Active docusate sodium (COLACE) 100 MG capsule Take 100 mg by mouth in the morning and 100 mg in the evening. Active isosorbide dinitrate (ISORDIL) 30 MG tablet Take 30 mg by mouth in the morning and 30 mg at noon and 30 mg in the evening and 30 mg before bedtime. Active methylphenidate ER (METADATE ER) 20 MG CR tablet Take 20 mg by mouth 1 (one) time each day in the morning Do not crush, chew, or split. Active magnesium hydroxide (MILK OF MAGNESIA) 800 MG/5ML suspension Take 2,400 mL by mouth 1 (one) time each day if needed for constipation Active sertraline (ZOLOFT) 25 MG tablet Take 25 mg by mouth 1 (one) time each day Active mirtazapine (REMERON) 7.5 MG tablet Take 7.5 mg by mouth every night Active losartan (COZAAR) 50 MG tablet Take 50 mg by mouth 1 (one) time each day Active ondansetron (ZOFRAN) 8 MG tablet Take by mouth every 8 (eight) hours if needed for nausea or vomiting Active tamsulosin (FLOMAX) 0.4 MG 24 hr capsule Take 1 capsule (0.4 mg total) by mouth 1 (one) time each day 30 capsule 11 4 Active Active Problems Problem Noted Date Diagnosed Date Stage 3a chronic kidney disease 03/01/2022 Acute kidney injury due to circulatory failure 0 03/01/2022 Encounters Date Type Department Care Team Description 11/06/2024 Refill [facility] [address] [phone] Catarina Milner 11/06/2024 Refill [facility] [address] [phone] Catarina Milner 11/06/2024 Refill [facility] [address] [phone] Catarina Milner from Last 3 Months Family History Medical History Relation Comments Hypertension Brother Hypertension Father Stroke Father Cancer Mother Hypertension Mother Hypertension Sister Relation Status Comments Brother Father Mother Sister Social History Tobacco Use Types Packs/Day Years Used Date Smoking Tobacco: Never Smokeless Tobacco: Never Tobacco Cessation:Counseling Given: Not Answered Alcohol Use Standard Drinks/Week Comments Yes 0 (1 standard drink = 0.6 oz pur e alcohol) Sex and Gender Information Value Date Recorded Sex Assigned at Not on file Legal Sex Male 3:47 PM EDT Gender Identity Not on file Sexual Orientation Not on file Last Filed Vital Signs Vital Sign Reading Time Taken Comments Blood Pressure 133/69 12/27/2022 4:23 PM EDT Pulse 67 12/27/2022 4:23 PM EDT Temperature - - Respiratory Rate - - Oxygen Saturation - - Inhaled Oxygen Concentration - - Weight 70.3 kg (155 lb) 12/27/2022 4:23 PM EDT Height - - Body Mass Index - - Plan of Treatment Upcoming Encounters Date Type Department Care Team (Late st Contact Info) Description 01/17/2025 11:45 AM EDT Office Visit [facility] [address] [address] Delmer Linares MD [address] [facility] [address] [place] [phone] Health Maintenance Due Date Last Done Comments Colorectal Cancer Screening: Annual FOBT 2000 Colorectal Cancer Screening: Colonoscopy 2000 Colorectal Cancer Screening: Sigmoidoscopy 2000 Pneumococcal Vaccine: 50+ Years Completed 03/30/2020, 08/13/2018 Influenza Vaccine Completed 04/13/2024, 04/28/2023, 05/23/2020 Hepatitis B Vaccine Aged Out No longe r eligible based on patient's age to complete this topic Insurance Medicare Medicaid [place] Medicare Medicaid [place] Care Teams Brownell Operator Relationship Specialty Start Date End Date Heather Tan MD PCP - General Internal Medicine 12/27/22
--- OUTSIDE RECORDS SUMMARY | 2024-11-22 13:00 | XMS_ITS | Clinical Summary ---
Author Organization [facility] Address [address] [place] [address] Care Team Providers Care Technical Advisor Name Role Phone Heather Tan MD Primary Care Provider [phone] Allergies No known active allergies Medications Medication Sig Dispensed Refills Start Date End Date Status acetaminophen (TYLENOL EXTRA STRENGTH) 500 MG tablet Take 1 tablet (500 mg total) by mouth. 0 Active amLODIPine (NORVASC) tablet 10 mg Take 1 tablet (10 mg total) by mouth. 0 04/17/2019 Active aspirin 81 MG EC tablet Take 1 tablet (81 mg total) by mouth. 0 01/21/2019 Active atorvastatin (LIPITOR) tablet 80 mg Take 1 tablet (80 mg total) by mouth. 0 02/05/2020 Active Docusate Sodium (DSS) 100 MG CAPS Take 100 mg by mouth. 0 09/18/2020 Active isosorbide mononitrate (IMDUR) 30 MG 24 hr tablet TAKE 1 TABLET (30MG) BY MOUTH ONCE DAILY IN THE MORNING 0 09/30/2021 Active losartan (COZAAR) tablet 50 mg TAKE 1 TABLET(50MG) BY MOUTH AT BEDTIME 0 08/04/2021 Active methylphenidate (RITALIN LA) 20 MG 24 hr capsule 0 10/06/2021 Active sertraline (ZOLOFT) 25 MG tablet Take 1 tablet (25 mg total) by mouth daily. 0 09/08/2021 Active ondansetron (Zofran) 8 MG tablet Take 1 tablet (8 mg total) by mouth every 8 (eight) hours as needed for nausea. 20 tablet 1 11/04/2021 Active loperamide (Imodium A-D) 2 MG tablet Take 1 tablet (2 mg total) by mouth 4 (four) times a day as needed for diarrhea. 30 tablet 0 11/05/2021 Active pantoprazole (PROTONIX) 40 MG tablet Take 1 tablet (40 mg total) by mouth every morning on an empty stomach. 0 Active lidocaine-prilocain e (EMLA) cream APPLY 1/8 OF TUBE TO PORT PRIOR TO CHEMOTHERAPY 30 g 0 04/13/2022 Active vitamin D3 (cholecalciferol) 25 MCG (1000 UT) tablet Take 1 tablet (25 mcg total) by mouth daily. 0 Active mirtazapine (REMERON) 7.5 MG tablet Take 1 tablet (7.5mg) by mouth once daily in the evening (to help increase appetite) 30 tablet 0 12/29/2022 Active Active Problems Problem Noted Date Diagnosed Date Malignant neoplasm of ascending colon 12/08/2021 Social History Tobacco Use Types Packs/Day Years [...] file Not on file Not on file Last Filed Vital Signs Vital Sign Reading Time Taken Comments Blood Pressure 157/90 04/11/2024 11:28 AM EDT Pulse 85 04/11/2024 11:28 AM EDT Temperature 37.4 ??C (99.4 ??F) 04/11/2024 11:28 AM E DT Respiratory Rate 16 04/25/2022 10:27 AM EDT Oxygen Saturation 99% 04/11/2024 11:28 AM EDT Inhaled Oxygen Concentration - - Weight 84 kg (185 lb 3.2 oz) 04/11/2024 11:28 AM EDT Height 175.3 cm (5' 9 ) 10/04/2023 10:51 AM EST Body Mass Index 27.35 10/04/2023 10:51 AM EST Plan of Treatment Health Maintenance Due Date Last Done Comments Hepatitis C Screening 1951 Depression Screening 1963 Preventative Health Evaluation 1969 Shingrix-Zoster Vaccine (1 of 2) 1970 Colon Cancer Screening (Colonoscopy) 1996 Fall Risk Assessment 2016 DTap / Tdap / Td (2 - Td or Tdap) 09/19/2018 09/19/2008 COVID-19 Vaccine ( season) 2024 04/28/2023, 06/19/2021, 09/07/2020, Additional history exists Influenza Vaccine (#1) 2024 3, 05/14/2022, 04/03/2021, Additional history exists RSV Adult > 60+ Yrs or (1 - 1-dose 75+ series) 2026 Pneumococcal Vaccine Completed 03/30/2020, 08/13/19 19 Hepatitis B Vaccines Aged Out No long er eligible based on patient's age to complete this topic RSV Ped < 20 months Aged Out No longe r eligible based on patient's age to complete this topic Care Teams Technical Advisor Relationship Specialty Start Date End Date Heather Tan MD PCP - General Internal Medicine 02/12/20
--- NOTE | 2024-11-22 14:16 | MHC.AU.HA3 ---
Hearing Instrument Follow-Up- Binaural Date of Visit: 11/22/24 Right Ear: Model Federico, Color, Serial Number: Matthew Oviedo L 70-R Bebeto Foster [id number] Cigar Packing Examiner Repair Warranty: 01/24/2027 Cigar Packing Examiner Loss and Damage Warranty: 01/24/2027 [facility] Service Plan: 01/09/2025 Battery Size: Rechargeable Education Reviewer/Slim Tube: #2 M [place]/Dome/CShell/SlimTip:sm vented Type of Wax Guard: Cerustop Dispensed By: [facility] Date of Fittin01/10/24 Left Ear: Model Federico, Color, Serial Number: Matthew Oviedo L 70-R Bebeto Foster [id number] Cigar Packing Examiner Repair Warranty: 01/23/2027 Cigar Packing Examiner Loss and Damage Warranty: 01/23/2027 [facility] Service Plan: 01/09/2025 Battery Size: Rechargeable Education Reviewer/Slim Tube: #2 M [place]/Dome/CShell/SlimTip: sm vented Type of Wax Guard: Cerustop Dispensed By: [facility] Date of Fittin01/10/24 Follow-Up Summary: Seen for evaluation. Reports left hearing aid not working. Found both aids with clogged wax guards. Cleaned aids, replaced domes and wax guards, listening check positive. Reviewed maintenance procedures with Juan A and his . Recommendations: Recommendations: Hearing instrument follow-up or maintenance as needed. 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
== END 2024-11-22 12:14 | disposition home or self-care (01) ==
LOC: HO.SH 12:13
PROVIDERS: Visit Provider Internal Medicine
DX: Z01.118 Encounter for examination of ears and hearing with other abnormal findings (principal); H90.3 Sensorineural hearing loss, bilateral
CPT/HCPCS: 92552; 92556

== ENCOUNTER 2024-11-22 12:52 | Outpatient (REF) | payer SELFPAY ==
--- OUTSIDE RECORDS SUMMARY | 2024-11-22 13:31 | XMS_ITS | Encounter Summary ---
Author Organization [facility] Address [address] [facility] [address] [place] [address] Phone Care Team Providers Care Quality Technician Fiberglass Name Role Phone Heather Tan MD Primary Care Provider [phone] Reason for Visit * Reason Onset Date Comments Med Refill 11/06/2024 Encounter Details Date Type Department Care Team (Late st Contact Info) Description 11/06/2024 Refill [facility] [address] [facility] [address] [place] [phone] Catarina Milner [address] [facility] [address] [place] [phone] Social History Tobacco Use Types Packs/Day Years [...] EDT Office Visit [facility] [address] [facility] [address] [place] [phone] Delmer Linares MD [address] [facility] [address] [place] [address] documented as of this encounter Visit Diagnoses Not on filedocumented in this encounter Care Teams Quality Technician Fiberglass Relationship Specialty Start Date End Date Heather Tan MD PCP - General Internal Medicine 12/27/22 documented as of this encounter
--- OUTSIDE RECORDS SUMMARY | 2024-11-22 13:31 | XMS_ITS | Encounter Summary ---
Author Organization [facility] Address [address] [place], [place] [phone] Care Team Providers Care Proposal Review Analyst Name Role Phone Heather Tan MD Primary Care Provider [phone] Encounter Details Date Type Department Care Team Description 03/08/2022 Social Work [facility] Oncology Services [address] [place] [address] Shivam Odell, [facility] Social History Tobacco Use Types Packs/Day Years [...] on filedocumented in this encounter Care Teams Proposal Review Analyst Relationship Specialty Start Date End Date Heather Tan MD PCP - General Internal Medicine 02/12/20 documented as of this encounter
--- OUTSIDE RECORDS SUMMARY | 2024-11-22 13:31 | XMS_ITS | Encounter Summary ---
Author Organization [facility] Address [address] [facility] [address] [place] [address] Phone Care Team Providers Care Rn Telephonic Name Role Phone Heather Tan MD Primary Care Provider [phone] Reason for Visit * Reason Onset Date Comments Med Refill 11/06/2024 Encounter Details Date Type Department Care Team (Late st Contact Info) Description 11/06/2024 Refill [facility] [address] [facility] [address] [place] [phone] Catarina Milner [address] [facility] [address] [place] [phone] Social History Tobacco Use Types Packs/Day Years [...] Office Visit [facility] [address] [phone] Delmer Linares MD [address] [phone] documented as of this encounter Visit Diagnoses Not on filedocumented in this encounter Care Teams Rn Telephonic Relationship Specialty Start Date End Date Heather Tan MD PCP - General Internal Medicine 12/27/22 documented as of this encounter
--- OUTSIDE RECORDS SUMMARY | 2024-11-22 13:31 | XMS_ITS | Clinical Summary ---
Author Organization [facility] [address] [place] [address] [place] [phone] Phone Care Team Providers Care Academic Affairs Director Name Role Phone Heather Tan MD Primary Care Provider [phone] Allergies No known active allergies Medications docusate [...] 07/07/2024 Malignant neoplasm of ascend ing colon ([facility] V24, [facility] V28) 12/08/2021 Secondary malignancy of inte stinal lymph nodes ([facility] V24, [facility] V28) 10/19/2021 Overview (07/07/2024): Metastatic colon cancr Hx SBO 10/10/2021 Stage 3b chronic kidney disease ([facility] V24, S/[facility] V28) 10/07/2021 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 GERD (gastroesophageal reflux disease) 0 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, [facility]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 Overview (07/07/2024): 12/2018: 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 causing excessive sleepiness, impulsivity, poor memory recall Insomnia 10/04/2013 Hypertension 08/22/2006 Erectile dysfunction 08/14/2006 Other psoriasis 07/20/2005 Hypercholesterolemia 07/20/2005 Anxiety state 07/20/2005 Overview (07/07/2024): chronic Depression 07/20/2005 Encounters Date Type Department Care Team Description 10/31/2024 11:00 AM EDT Office Visit [facility] Hematology Oncology [address] [place] [phone] Ramya Mejia MD Malignant neoplasm of ascending colon ([facility] V24, [facility] V28) (Primary Dx) 10/22/2024 1:45 PM EDT Office Visit [facility] - [place] [address] [place] [address] [place] [phone] Vlad Andrade, DPM Lumbosacral radiculopathy (Primary Dx); Hammertoes of both feet; Pain in toes of both feet; Dermatophytosis, nail 09/20/2024 Telephone Adult Medicine [address] [phone] Heather Tan MD Referral from [...] Date Site/Laterality Comments OTHER SURGICAL HISTORY PROCEDURE: [place] STRABISMUS RECESSION/RESCJ 1 HRZNTL [facility]; COMMENT: strabismus surgery TONSILLECTOMY PROCEDURE: HISTORICAL TONSILLECTOMY APPENDECTOMY PROCEDURE: [place] APPENDECTOMY COLONOSCOPY 09/21/2007 PROCEDURE: [place]Y COLONOSCOPY FLX DX W/COLLJ SPEC WHEN PFRMD; [...] fr acture Insomnia 10/04/2013 DX:Insomnia 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 , [facility] V28) 07/01/2019 DX:Thalamic stroke ([facility]); CO MMENT: 01/16 Constipation 02/20/2020 DX:Constipation GERD (gastroesophageal reflu x disease) 02/20/2020 DX:GERD (gastroesophageal re flux disease) CKD (chronic kidney disease) stage 3, GFR 30-59 ml/min ([facility] V24, [facility] V28) 03/30/2020 DX:CKD (chronic kidney disea se) stage 3, GFR 30-59 ml/min ([facility]) 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 DX:Organi c brain [...] 11:00 AM EDT Office Visit Adult Medicine [address] [place] [address] Heather Tan MD [address] [place] [address] 07/09/2025 11:15 AM EST Office Visit [facility] Hematology Oncology [address] [place] [phone] Ramya Mejia MD [address] [place] [address] Health Maintenance Due Date Last Done Comments [...] mg/dL LAB CHEMISTRY METHOD 07/02/2024 2:36 PM [facility] Triglycerides 198(H) 0 - 150 mg/dL LAB CHEMISTRY METHOD 07/02/2024 2:36 PM [facility] HDL 32(L) >=40 mg/dL LAB CHEMISTRY METHOD 07/02/2024 2:36 PM [facility] LDL Calculated 21 0 - 100 mg/dL LAB CHEMISTRY METHOD 07/02/2024 2:36 PM [facility] VLDL Cholesterol Jude 39.6 mg/dL LAB CHEMISTRY METHOD 07/02/2024 2:36 PM [facility] Non HDL Chol. (LDL+VLDL) 61 <145 mg/dL LAB CHEMISTRY METHOD 07/02/2024 2:36 PM [facility] Chol/HDL Ratio 2.9 0.0 - 4.4 LAB CHEMISTRY METHOD 07/02/2024 2:36 PM [facility] Blood Venous blood specimen / Unknown Venipuncture / Unknown 07/02/2024 10:29 AM EST 07/02/2024 10:29 AM EST Priscilla BEVERLY LAB BLOOD ORDERABLES Final Re sult [facility] [address] [place] [address], [place] [phone] * (ABNORMAL) Comprehensive metabolic panel (07/02/2024 10:29 AM EST) Sodium 141 133 - 145 mmol/L LAB CHEMISTRY METHOD 07/02/2024 2:36 PM [facility] Potassium 4.0 3.5 - 5.5 mmol/L LAB CHEMISTRY METHOD 07/02/2024 2:36 PM [facility] Chloride 107 96 - 110 mmol/L LAB CHEMISTRY METHOD 07/02/2024 2:36 PM [facility] CO2 29 21 - 32 mmol/L LAB CHEMISTRY METHOD 07/02/2024 2:36 PM [facility] Anion Gap 5 3 - 11 LAB CHEMISTRY METHOD 07/02/2024 2:36 PM [facility] Glucose 114(H) 70 - 100 mg/dL LAB CHEMISTRY METHOD 07/02/2024 2:36 PM [facility] BUN 21 5 - 25 mg/dL LAB CHEMISTRY METHOD 07/02/2024 2:36 PM [facility] Creatinine 1.76(H) 0.70 - 1.30 mg/dL LAB CHEMISTRY METHOD 07/02/2024 2:36 PM [facility] eGFR 41(L) >=60 mL/min/1. 73m2 LAB CHEMISTRY METHOD 07/02/2024 2:36 PM [facility] Comment:Calculation based on the??Chronic Kidney Disease Epidemiology Collaboration (CKD-EPI) equation refit??without adjustment for race. BUN/Creatinine Ratio 11.9 LAB CHEMISTRY METHOD 07/02/2024 2:36 PM [facility] Calcium 9.5 8.5 - 10.5 mg/dL LAB CHEMISTRY METHOD 07/02/2024 2:36 PM [facility] AST (SGOT) 19 10 - 42 unit/L LAB CHEMISTRY METHOD 07/02/2024 2:36 PM [facility] ALT (SGPT) 21 10 - 60 unit/L LAB CHEMISTRY METHOD 07/02/2024 2:36 PM [facility] Alkaline Phosphatase 104 42 - 121 unit/L LAB CHEMISTRY METHOD 07/02/2024 2:36 PM [facility] Total Protein 7.8 6.0 - 8.0 g/dL LAB CHEMISTRY METHOD 07/02/2024 2:36 PM [facility] Albumin 4.4 3.2 - 5.0 g/dL LAB CHEMISTRY METHOD 07/02/2024 2:36 PM [facility] Total Bilirubin 0.5 0.0 - 1.4 mg/dL LAB CHEMISTRY METHOD 07/02/2024 2:36 PM [facility] Blood Venous blood specimen / Unknown Venipuncture / Unknown 07/02/2024 10:29 AM EST 07/02/2024 10:29 AM EST us Priscilla BEVERLY LAB BLOOD ORDERABLES Final Re sult [facility] [address] [place] [address], from Last 3 Months or Most Recently Relevant to Health Maintenance Insurance MEDICARE MEDICAID - [place] Advance Directives Documents on File Type Date Recorded Patient Electrical Engineering Technologist Expl anation Health Care Decision (hx) 09/13/2022 [...] (hx) 04/10/2019 AD CARRERA DIRECTIVE Care Teams Academic Affairs Director Relationship Specialty Start Date End Date Heather Tan MD [address] [place] [id number] PCP - General 10/08/99
--- OUTSIDE RECORDS SUMMARY | 2024-11-22 13:31 | XMS_ITS | Clinical Summary ---
Author Organization [facility] Address [address] [place] [address] Care Team Providers Care Tailor Garment Fitter Name Role Phone Heather Tan MD Primary Care Provider [phone] Allergies No known active allergies Medications Medication [...] age to complete this topic Care Teams Tailor Garment Fitter Relationship Specialty Start Date End Date Heather Tan MD PCP - General Internal Medicine 02/12/20
--- OUTSIDE RECORDS SUMMARY | 2024-11-22 13:32 | XMS_ITS | Clinical Summary ---
Author Organization [facility] Address [address] [place] [address] Phone Care Team Providers Care Rn Gyn Name Role Phone Heather Tan MD Primary Care Provider [phone] Allergies No known active allergies Medications acetaminophen [...] 11/06/2024 Refill [facility] [address] [phone] Catarina Milner 11/06/2024 Refill [facility] [address] [phone] Catarina Milner 11/06/2024 Refill [facility] [address] [phone] Catarina Milner from Last 3 Months Family [...] Visit [facility] [address] [phone] Delmer Linares MD [address] [facility] [address] [place] [phone] Health Maintenance Due Date Last Done Comments Colorectal Cancer Screening: Annual FOBT 2000 Colorectal Cancer Screening: Colonoscopy 2000 Colorectal Cancer Screening: Sigmoidoscopy 2000 Pneumococcal Vaccine: 50+ Years Completed 03/30/2020, 08/13/2018 Influenza Vaccine Completed 04/13/2024, 04/28/2023, 05/23/2020 Hepatitis B Vaccine Aged Out No longe r eligible based on patient's age to complete this topic Insurance Medicare Medicaid [place] Medicare Medicaid [place] Care Teams Rn Gyn Relationship Specialty Start Date End Date Heather Tan MD PCP - General Internal Medicine 12/27/22
--- OUTSIDE RECORDS SUMMARY | 2024-11-22 13:32 | XMS_ITS ---
Author Organization [facility] Address [address] [place] [address] Care Team Providers Care Solution Advisor Name Role Phone Heather Tan MD Primary Care Provider [phone] Active Problems Problem Noted Date Diagnosed Date Malignant neoplasm of ascending colon 12/08/2021 Current Oncology Plans No current plan information found. Past Plans ONCOLOGY TREATMENT Plan Name Start Date Discontinue Date Treatment Medications Discontinue Reason Plan Provider [employer]cles [facility] BCN OP FOLFOX 6 (MODIFIED) - OXALIPLATIN [...] treatments are documented for this patient in [facility]. Treatments may have been administered in another system.
== END 2024-11-22 12:53 | disposition home or self-care (01) ==
LOC: HO.HAP 12:52
PROVIDERS: Visit Provider Internal Medicine
DX: Z46.1 Encounter for fitting and adjustment of hearing aid (principal)
CPT/HCPCS: V5267